=== PATIENT | female | born 1985 | race Caucasian/White ===

== ENCOUNTER 2023-08-12 17:34 | Emergency (ER) | payer MEDICAID, OTHER ==
[~2023-08-12] VITALS: Ht 162.6 cm; Wt 88.0 kg
[2023-08-12 17:40] VITALS: O2SAT 99
[2023-08-12] MEDS ORDERED: IBUP-2029 MT (18:21)
[2023-08-12 18:49] VITALS: BP 120/66; PULSE 92; RESP 18; TEMP 98.6
== END 2023-08-12 18:51 | disposition home or self-care (01) ==
LOC: ER 17:34
DX: M77.12 Lateral epicondylitis, left elbow (principal)
CPT/HCPCS: 99282